=== PATIENT | male | born 1980 | race Caucasian/White ===

== ENCOUNTER 2017-07-13 04:38 | Emergency (ER) | payer OTHER ==
[~2017-07-13] VITALS: Ht 180.3 cm; Wt 113.4 kg
[2017-07-13] MEDS ORDERED: ONDANSETRON HCL INJ 2 MG/ML VIAL IV STA (04:59)
[2017-07-13] MEDS ORDERED: KETOROLAC TROMETHAMINE 30 MG/ML VIAL IV STA (04:59)
[2017-07-13] MEDS ORDERED: NORVASC5 MG PO (05:05)
[2017-07-13] MEDS ORDERED: CRESTOR10 MG PO (05:05)
[2017-07-13] MEDS ORDERED: LOSARTAN POTASS25 MG PO (05:05)
[2017-07-13] MEDS ORDERED: TRIAMTERENE-HCTZ1 EA PO (05:05)
[2017-07-13] MEDS ORDERED: SIMVASTATIN20 MG PO (05:05)
[2017-07-13 05:32] LABS: BILIRUBIN,URINE NEGATIVE (NEGATIVE); CLARITY,URINE CLEAR (CLEAR); COLOR,URINE YELLOW (YELLOW); KETONES,URINE NEGATIVE (NEGATIVE); LEUKOCYTE ESTERASE ,URINE NEGATIVE (NEGATIVE); NITRITE,URINE NEGATIVE (NEGATIVE); PROTEIN,URINE DIPSTICK NEGATIVE (NEGATIVE); URINE UROBILINOGEN 0.2 mg/dL (0.2 - 1)
[2017-07-13 05:33] LABS: BASOPHILS % 0.3 % (0.0-1.0); EOSINOPHILS # (AUTO) 0.1 (0.0-0.4); EOSINOPHILS % 0.8 % (0.0-6.0); HEMATOCRIT 42.7 % (38.2-49.6); HEMOGLOBIN 15.4 g/dL (14.0-18.0); LYMPHOCYTES # (AUTO) 2.3 (1.0-3.2); LYMPHOCYTES % 23.4 % (18.0-39.1); MEAN CORPUSCULAR HGB CONC 36.1 g/dL (31-35); MEAN CORPUSCULAR VOLUME 91.4 fL (81-99); MONOCYTES # (AUTO) 0.8 (0.2-0.8); MONOCYTES % 7.8 % (4.4-11.3); NEUTROPHILS # (AUTO) 6.6 (2.1-6.9); NEUTROPHILS % 67.4 % (38.7-80.0); PLATELET COUNT 162 x10e3/uL (140-360); RED BLOOD COUNT 4.67 x10e6/uL (4.3-5.7); RED CELL DISTRIBUTION WIDTH 12.1 % (11.7-14.4)
[2017-07-13] MEDS ORDERED: DIATRIZOATE MEGL/DIATRIZOA SOD 30 ML BTL PO ONE (05:35)
[2017-07-13 05:46] LABS: ALANINE AMINOTRANSFERASE 45 IU/L (0-55); ALBUMIN 3.8 g/dL (3.5-5.0); ALBUMIN/GLOBULIN RATIO 1.1 (0.8-2.0); ALKALINE PHOSPHATASE 77 IU/L (40-150); AMYLASE 60 U/L (25-125); ANION GAP 11.3 mmol/L (8-16); BLOOD UREA NITROGEN 14 mg/dL (7-26); BUN/CREATININE RATIO 11 (6-25); CALCIUM 8.9 mg/dL (8.4-10.2); CARBON DIOXIDE 24 mmol/L (22-29); CHLORIDE 103 mmol/L (98-107); CREATININE, SERUM 1.22 mg/dL (0.72-1.25); EST GLOMERULAR FILTRATION RATE > 60 ML/MIN (60-); GLUCOSE 139 mg/dL (74-118); LIPASE 48 U/L (8-78); POTASSIUM 3.3 mmol/L (3.5-5.1); SODIUM 135 mmol/L (136-145)
[2017-07-13 05:49] LABS: BACTERIA,URINE RARE /HPF; EPITHELIAL CELLS,URINE RARE /LPF; RBC,URINE 0-5 /HPF (0-5); WBC,URINE (MAN) 0-5 /HPF (0-5)
[2017-07-13 05:50] LABS: MUCUS,URINE MANY (RARE)
[2017-07-13] MEDS ORDERED: IOPAMIDOL 370 MG/ML 200 ML INFUS..BTL INJ ONE (06:31)
[2017-07-13] MEDS ORDERED: SODIUM CHLORIDE 0.9% 50ML 50 ML ONE (06:31)
--- NOTE | 2017-07-13 06:55 | Diagnostic Imaging Report ---
EXAM: CT ABDOMEN AND PELVIS with IV CONTRAST DATE: 07/13/2017 4:59 AM Time stamp on Exam: 0628 hours INDICATION: Left lower quadrant pain COMPARISON: None available TECHNIQUE: The abdomen and pelvis were scanned using a multidetector helical scanner. Coronal and sagittal reformations were obtained. Routine protocol performed. IV Contrast: 100 cc Isovue-370 Oral Contrast: Gastrografin CTDIvol has been reviewed. It is below the limits set by the Radiation Protocol Committee (RPC). FINDINGS: LOWER THORAX: No consolidations LIVER: No masses BILIARY: The gallbladder is unremarkable. No ductal dilation. SPLEEN: No masses PANCREAS: No masses ADRENALS: No nodules KIDNEYS: Symmetric perfusion. No enhancing masses. No hydronephrosis. GI TRACT: Sigmoid colon thickening and pericolonic fat stranding and an area of diverticula. No bowel obstruction. VESSELS: Unremarkable PERITONEUM/RETROPERITONEUM: No free air or fluid LYMPH NODES: No lymphadenopathy REPRODUCTIVE ORGANS: Unremarkable BLADDER: Unremarkable SOFT TISSUES: Unremarkable BONES: No suspicious bone lesions. IMPRESSION: Acute sigmoid colon diverticulitis without abscess formation or free peritoneal air. Signed by: Dr. Nellie Ferrell M.D. on 07/13/2017 6:51 AM
[2017-07-13 07:03] VITALS: BP 109/70
== END 2017-07-13 08:03 | disposition home or self-care (01) ==
LOC: ER 04:38
DX: K57.32 Diverticulitis of large intestine without perforation or abscess without bleeding (principal); I10 Essential (primary) hypertension
CPT/HCPCS: 36415; 74177; 80053; 81001; 82150; 83690; 85025; 87086; 99284; J1885; J2405; Q9967

== ENCOUNTER 2019-05-01 08:45 | Inpatient (IN) | payer OTHER ==
[~2019-05-01] VITALS: Ht 177.8 cm; Wt 113.4 kg
[~2019-05-01 08:45] MED LIST: CRESTOR10 MG PO; LOSARTAN POTASS25 MG PO; NORVASC5 MG PO; SIMVASTATIN20 MG PO; TRIAMTERENE-HCTZ1 EA PO
--- OUTSIDE RECORDS SUMMARY | 2019-05-01 08:48 | XMS REPORT ---
Author Author [facility] Address Unknown Phone Unavailable Care Team Providers [employer] Name Role Phone Katy CANCINO Unavailable Unavailable Payers Payer Name Policy Type Policy Number Effective Date Expiration Date Problems This patient has no known problems. Allergies, Adverse Reactions, Alerts Allergy Name Allergy Type Status Severity Reaction(s) Onset Date Inactive Date Treating Clinician Comments No Known Allergies DA Active U 2012-08-07 00:00:00 Medications This patient has no known medications. Results Test Description Test Time Test Comments Text Results Atomic Results Result Comments RAD, CHEST, 2 VIEWS 2017-12-15 09:18:00 Reason for Exam:->z13.6 FINAL REPORT TECHNIQUE: Frontal and lateral chest radiographs dated 12/15/2017. CLINICAL HISTORY: z13.6 COMPARISON STUDY: Chest radiograph dated 05/29/2016 FINDINGS: Lungs are clear. No pleural effusion or pneumothorax. Cardiomediastinal silhouette is normal in size. No pulmonary edema. No bone or soft tissue abnormalities are seen. IMPRESSION: Clear lungs. Signed: Katy Armendarizepemmett Verified Date/Time: 12/15/2017 09:18:31 Reading Location: [facility] Radiology Reading Room ABDOMEN/PELVIS [address] [place] [address] Patient Name: JOSE JOYNER MR #: [id number] : 1980 Age/Sex: 36/M Req #: [id number] Adm Physician: Ordered by: ROBERT CANCINO MD Report #: [id number] Location: ER Room/Bed: Procedure: [id number] CT/CT ABDOMEN/PELVIS W Exam Date: 07/13/17 Exam Time: 627 REPORT STATUS: Signed EXAM: CT ABDOMEN AND PELVIS with IV CONTRAST DATE: 07/13/2017 4:59 AM Time stamp on Exam: 0628 hours INDICATION: Left lower quadrant pain COMPARISON: None available TECHNIQUE: The abdomen and pelvis were scanned using a multidetector helical scanner. Coronal and sagittal reformations were obtained. Routine protocol performed. IV Contrast: 100 cc Isovue-370 Oral Contrast: Gastrografin CTDIvol has been reviewed. It is below the limits set by the Radiation Protocol Committee (RPC). FINDINGS: LOWER THORAX: No consolidations LIVER: No masses BILIARY: The gallbladder is unremarkable. No ductal dilation. SPLEEN: No masses PANCREAS: No masses ADRENALS: No nodules KIDNEYS: Symmetric perfusion. No enhancing masses. No hydronephrosis. GI TRACT: Sigmoid colon thickening and pericolonic fat stranding and an area of diverticula. No bowel obstruction. VESSELS: Unremarkable PERITONEUM/RETROPERITONEUM: No free air or fluid LYMPH NODES: No lymphadenopathy REPRODUCTIVE ORGANS: Unremarkable BLADDER: Unremarkable SOFT TISSUES: Unremarkable BONES: No suspicious bone lesions. IMPRESSION: Acute sigmoid colon diverticulitis without abscess formation or free peritoneal air. Signed by: Dr. Anupama Ferrell M.D. on 07/13/2017 6:51 AM Dictated By: ANUPAMA FERRELL MD 0 Transcribed By: ALICIA on 07/13/17650 COPY TO: ROBERT CANCINO MD
[2019-05-01] MEDS ORDERED: LOSARTAN POTASS50 MG PO (08:56)
[2019-05-01] MEDS ORDERED: FENOFIBRATE145 M1 PO (08:56)
[2019-05-01] MEDS ORDERED: TRIAMTERENE-HC1 EAC2 PO (08:56)
[2019-05-01] MEDS ORDERED: SODIUM CHLORIDE 0.9% 1000ML 1,000 ML IV STA (09:00)
[2019-05-01] MEDS ORDERED: KETOROLAC TROMETHAMINE 30 MG/ML VIAL IV NR (09:08)
[2019-05-01] MEDS ORDERED: HYDROMORPHONE 1MG/1ML INJ IV NR (09:15)
[2019-05-01 09:16] LABS: BASOPHILS % 0.2 % (0.0-1.0); EOSINOPHILS % 0.2 % (0.0-6.0); HEMATOCRIT 42.6 % (38.2-49.6); LYMPHOCYTES # (AUTO) 1.7 (1.0-3.2); LYMPHOCYTES % 16.8 % (18.0-39.1); MEAN CORPUSCULAR HEMOGLOBIN 32.9 pg (28-32); MEAN CORPUSCULAR HGB CONC 35.2 g/dL (31-35); MEAN CORPUSCULAR VOLUME 93.4 fL (81-99); MONOCYTES # (AUTO) 0.6 (0.2-0.8); MONOCYTES % 5.9 % (4.4-11.3); NEUTROPHILS # (AUTO) 7.5 (2.1-6.9); NEUTROPHILS % 76.5 % (38.7-80.0); PLATELET COUNT 168 x10e3/uL (140-360); RED BLOOD COUNT 4.56 x10e6/uL (4.3-5.7); RED CELL DISTRIBUTION WIDTH 11.9 % (11.7-14.4)
[2019-05-01 09:17] LABS: BILIRUBIN,URINE NEGATIVE (NEGATIVE); CLARITY,URINE CLEAR (CLEAR); COLOR,URINE YELLOW (YELLOW); KETONES,URINE NEGATIVE (NEGATIVE); LEUKOCYTE ESTERASE ,URINE NEGATIVE (NEGATIVE); NITRITE,URINE NEGATIVE (NEGATIVE); PROTEIN,URINE DIPSTICK NEGATIVE (NEGATIVE); URINE UROBILINOGEN 1 mg/dL (0.2 - 1)
[2019-05-01 09:19] LABS: INR 1.06; PROTHROMBIN TIME 14.3 seconds (11.9-14.5)
[2019-05-01 09:20] LABS: PARTIAL THROMBOPLASTIN TIME 26.9 seconds (23.8-35.5)
[2019-05-01 09:26] LABS: ALANINE AMINOTRANSFERASE 49 IU/L (0-55); ALBUMIN 4.1 g/dL (3.5-5.0); ALBUMIN/GLOBULIN RATIO 1.2 (0.8-2.0); ALKALINE PHOSPHATASE 61 IU/L (40-150); ANION GAP 11.4 mmol/L (8-16); BLOOD UREA NITROGEN 12 mg/dL (7-26); BUN/CREATININE RATIO 10 (6-25); CALCIUM 9.7 mg/dL (8.4-10.2); CARBON DIOXIDE 27 mmol/L (22-29); CHLORIDE 101 mmol/L (98-107); CREATINE KINASE 115 IU/L (30-200); CREATININE, SERUM 1.22 mg/dL (0.72-1.25); EST GLOMERULAR FILTRATION RATE > 60 ML/MIN (60-); GLUCOSE 112 mg/dL (74-118); POTASSIUM 3.4 mmol/L (3.5-5.1); SODIUM 136 mmol/L (136-145)
[2019-05-01] MEDS: ONDANSETRON HCL INJ 2MG/ML 2ML 2 MG/ML VIAL IV NR ×2 (09:30→12:59)
[2019-05-01] MEDS ORDERED: PANTOPRAZOLE 40 MG 10ML VIAL IV NR (09:30)
[2019-05-01] MEDS ORDERED: DIATRIZOATE MEGL/DIATRIZOA SOD 30 ML BTL PO ONE (09:38)
[2019-05-01 09:44] LABS: BACTERIA,URINE FEW /HPF; RBC,URINE 0-5 /HPF (0-5)
[2019-05-01 09:45] LABS: EPITHELIAL CELLS,URINE RARE /LPF
[2019-05-01] MEDS ORDERED: SODIUM CHLORIDE 0.9% 50ML 50 ML ONE (11:00)
[2019-05-01] MEDS ORDERED: IOPAMIDOL 370 MG/ML 200 ML INFUS..BTL INJ ONE (11:00)
[2019-05-01] MEDS: PIPER-TAZ 3.375 GM 50 ML IV SCH ×4 (11:39→23:20)
[2019-05-01] MEDS: METRONIDAZOLE 500MG/NS 100ML 100 ML IV SCH ×2 (11:39→17:58)
[2019-05-01] MEDS ORDERED: ONDANSETRON HCL INJ 2MG/ML 2ML 2 MG/ML VIAL IV PRN (11:45)
[2019-05-01] MEDS ORDERED: HYDROMORPHONE 1MG/1ML INJ IV PRN (11:45)
--- NOTE | 2019-05-01 12:15 | Diagnostic Imaging Report ---
EXAM: CT Abdomen and Pelvis WITH contrast INDICATION: ^LLQ ABD PAIN, FEVER, LIKELY DIVERTICULITIS CLINICALLY ^[id number] ^1040 COMPARISON: CT abdomen and pelvis 07/13/2017 TECHNIQUE: Abdomen and pelvis were scanned utilizing a multidetector helical scanner from the lung base to the pubic symphysis after administration of IV contrast. Coronal and sagittal reformations were obtained. Routine protocol was performed. Scan was performed when during portal venous phase. IV CONTRAST: 100 mL of Isovue-370 ORAL CONTRAST: None RADIATION DOSE: Total DLP: 883.9 mGy*cm Estimated effective dose: (DLP x 0.015 x size factor) mSv COMPLICATIONS: None FINDINGS: LINES and TUBES: None. LOWER THORAX: Unremarkable HEPATOBILIARY: Hepatic steatosis. No focal hepatic lesions. No biliary ductal dilation. GALLBLADDER: No radio-opaque stones or sludge. No wall thickening. SPLEEN: No splenomegaly. PANCREAS: No focal masses or ductal dilatation. ADRENALS: No adrenal nodules KIDNEYS/URETERS: Kidneys enhance symmetrically. No hydronephrosis. No cystic or solid mass lesions. No stones. GI TRACT: Mild circumferential wall thickening of the stomach may be overestimated by poor distention but cannot exclude chronic inflammation. Diffuse diverticulosis throughout the sigmoid colon with worsening wall thickening and surrounding fat stranding suggestive of recurrent acute diverticulitis. No free air or free fluid or abscess. Mild wall thickening of few loops of small bowel adjacent to the sigmoid diverticulitis, likely reactive inflammation. The remaining bowel is unremarkable. Appendix is not visualized. PELVIC ORGANS/BLADDER: Unremarkable. LYMPH NODES: No lymphadenopathy. VESSELS: Unremarkable. PERITONEUM / RETROPERITONEUM: No free air or fluid. BONES: Unremarkable. SOFT TISSUES: Unremarkable. IMPRESSION: Recurrent acute noncomplicated diverticulitis of the sigmoid colon. No abscess or pneumoperitoneum. These findings were discussed with Dr. Garcia on 05/01/2019 at 12:00 PM. Signed by: Dr. Cecy Petersen M.D. on 05/01/2019 12:12 PM
--- NOTE | 2019-05-01 12:30 | NUR ---
received report from [facility] in er awaiting for pt to arrive to floor
[2019-05-01 13:25] VITALS: BP 126/79
--- NOTE | 2019-05-01 13:25 | NUR ---
PT ARRIVED TO FLOOR AA0X3 A BEDSIDE PT REPORTS PAIN TO ABD 4/10 TOLERABLE AT THIS TIME IV TO THE RIGHT AC 18 C PATENT AND DRY PT IS EATING CLEAR LIQUIDS AT BEDSIDE WILL CONTINUE TO MONITOR PT CLOSELY SIDE RAILSX2, BED WHEELS LOCKED, CALL LIGHT IS WITHIN EASY REACH, INSTRUCTED TO CALL FOR ASSISTANCE IF NEEDED
[2019-05-01] MEDS: SODIUM CHLORIDE 0.9% 1000ML 1,000 ML IV SCH ×2 (13:39→23:20)
[2019-05-01] MEDS ORDERED: INFLUENZA VIRUS VAC SPLIT INJ 0.5 ML SYR IM SCH (13:39)
[2019-05-01 16:04] VITALS: BP 107/78
--- NOTE | 2019-05-01 18:42 | NUR ---
PT COMPLAINTS OF CHILLS. TEMP TAKEN READS 101.2 SPOKE WITH MARGUERITE NEW ORDERS RECEIVED BLOOD CULTURES, TYLENOL, AND HOME MED RENEWAL ORDERS RECEIVED
[2019-05-01] MEDS ORDERED: HYDRALAZINE HCL 20 MG/ML VIAL IV PRN (18:45)
[2019-05-01] MEDS ORDERED: ACETAMINOPHEN 325 MG TAB PO PRN (18:45)
[2019-05-01 19:55] VITALS: BP 131/83
[2019-05-01 20:00] VITALS: BP 131/83
[2019-05-02] VITALS (8 sets, daily range): BP systolic 99–127; BP diastolic 68–83
[2019-05-02] MEDS: SODIUM CHLORIDE 0.9% 1000ML 1,000 ML IV SCH ×3 (03:36→19:36)
[2019-05-02] MEDS: PIPER-TAZ 3.375 GM 50 ML IV SCH ×3 (05:24→17:09)
[2019-05-02] MEDS ORDERED: MELATONIN 5 MG TABLET PO PRN (06:00)
[2019-05-02] MEDS ORDERED: HYDROCODONE/APAP 5MG-325MG TAB PO PRN (06:00)
[2019-05-02] MEDS: METRONIDAZOLE 500MG/NS 100ML 100 ML IV SCH ×4 (06:04→17:42)
[2019-05-02 06:15] LABS: BASOPHILS % 0.3 % (0.0-1.0); EOSINOPHILS # (AUTO) 0.1 (0.0-0.4); EOSINOPHILS % 0.8 % (0.0-6.0); HEMATOCRIT 35.7 % (38.2-49.6); HEMOGLOBIN 12.5 g/dL (14.0-18.0); LYMPHOCYTES # (AUTO) 1.6 (1.0-3.2); LYMPHOCYTES % 21.5 % (18.0-39.1); MEAN CORPUSCULAR HEMOGLOBIN 32.8 pg (28-32); MEAN CORPUSCULAR VOLUME 93.7 fL (81-99); MONOCYTES # (AUTO) 0.7 (0.2-0.8); MONOCYTES % 8.6 % (4.4-11.3); NEUTROPHILS # (AUTO) 5.2 (2.1-6.9); NEUTROPHILS % 68.4 % (38.7-80.0); PLATELET COUNT 125 x10e3/uL (140-360); RED BLOOD COUNT 3.81 x10e6/uL (4.3-5.7); RED CELL DISTRIBUTION WIDTH 11.8 % (11.7-14.4)
[2019-05-02 06:33] LABS: ALANINE AMINOTRANSFERASE 32 IU/L (0-55); ALBUMIN 3.2 g/dL (3.5-5.0); ALBUMIN/GLOBULIN RATIO 1.1 (0.8-2.0); ALKALINE PHOSPHATASE 49 IU/L (40-150); ANION GAP 11.5 mmol/L (8-16); BLOOD UREA NITROGEN 11 mg/dL (7-26); BUN/CREATININE RATIO 9 (6-25); CALCIUM 8.7 mg/dL (8.4-10.2); CARBON DIOXIDE 25 mmol/L (22-29); CHLORIDE 107 mmol/L (98-107); CREATININE, SERUM 1.28 mg/dL (0.72-1.25); EST GLOMERULAR FILTRATION RATE > 60 ML/MIN (60-); GLUCOSE 95 mg/dL (74-118); POTASSIUM 3.5 mmol/L (3.5-5.1); SODIUM 140 mmol/L (136-145)
--- NOTE | 2019-05-02 07:00 | NUR ---
BEDSIDE ROUNDS COMPLETE NO DISTRESS NOTED,UPDATED ON POC VOCIED UNDERSTANDING, ALLEN PAIN AT THIS TIME CALL LIGHT IN REACH WILL CONTINUE TO MONITOR
[2019-05-02] MEDS ORDERED: ONDANSETRON HCL 4 MG ORAL DISINTEGRATING TAB PO PRN (08:00)
[2019-05-02] MEDS ORDERED: LOSARTAN POTASSIUM 100 MG TAB PO SCH (09:00)
[2019-05-02 09:11] LABS: C DIFFICILE TOXIN A&B AMP PROB NEGATIVE (NEGATIVE); OCCULT BLOOD STOOL NEGATIVE (NEGATIVE)
[2019-05-02] MEDS: FENOFIBRATE 145 MG TAB PO SCH (09:37)
--- NOTE | 2019-05-02 20:03 | NUR ---
Received change of shift report from AM nurse. Walking rounds completed.
[2019-05-02] MEDS ORDERED: LOSARTAN POTASSIUM 25 MG TAB PO SCH (21:00)
--- NOTE | 2019-05-03 02:00 | NUR ---
Patient up ambulating in torres with no difficulty noted.
[2019-05-03] MEDS: SODIUM CHLORIDE 0.9% 1000ML 1,000 ML IV SCH (03:36)
[2019-05-03 04:00] VITALS: BP 112/63
[2019-05-03 05:47] LABS: BASOPHILS % 0.4 % (0.0-1.0); EOSINOPHILS # (AUTO) 0.1 (0.0-0.4); EOSINOPHILS % 1.4 % (0.0-6.0); HEMATOCRIT 34.7 % (38.2-49.6); HEMOGLOBIN 11.9 g/dL (14.0-18.0); LYMPHOCYTES # (AUTO) 1.7 (1.0-3.2); LYMPHOCYTES % 33.4 % (18.0-39.1); MEAN CORPUSCULAR HEMOGLOBIN 32.2 pg (28-32); MEAN CORPUSCULAR HGB CONC 34.3 g/dL (31-35); MONOCYTES # (AUTO) 0.5 (0.2-0.8); MONOCYTES % 10.6 % (4.4-11.3); NEUTROPHILS # (AUTO) 2.7 (2.1-6.9); NEUTROPHILS % 53.8 % (38.7-80.0); PLATELET COUNT 135 x10e3/uL (140-360); RED BLOOD COUNT 3.69 x10e6/uL (4.3-5.7); RED CELL DISTRIBUTION WIDTH 11.6 % (11.7-14.4)
[2019-05-03] MEDS: METRONIDAZOLE 500MG/NS 100ML 100 ML IV SCH ×2 (05:51)
[2019-05-03] MEDS: PIPER-TAZ 3.375 GM 50 ML IV SCH ×2 (05:51)
[2019-05-03 06:03] LABS: ANION GAP 10.6 mmol/L (8-16); BLOOD UREA NITROGEN 8 mg/dL (7-26); BUN/CREATININE RATIO 6 (6-25); CARBON DIOXIDE 25 mmol/L (22-29); CHLORIDE 107 mmol/L (98-107); CHOL/HDL RATIO 4.1 (3.9-4.7); CHOLESTEROL 140 MD/DL (0-199); CREATININE, SERUM 1.24 mg/dL (0.72-1.25); EST GLOMERULAR FILTRATION RATE > 60 ML/MIN (60-); GLUCOSE 92 mg/dL (74-118); HDL CHOLESTEROL 34 MG/DL (40-60); LDL CHOLESTEROL 94 MG/DL (60-130); LIPASE 26 U/L (8-78); POTASSIUM 3.6 mmol/L (3.5-5.1); SODIUM 139 mmol/L (136-145); TRIGLYCERIDES 58 MG/DL (0-149)
[2019-05-03 06:25] LABS: THYROID STIMULATING HORMONE 1.578 uIU/mL (0.350-4.940)
--- NOTE | 2019-05-03 06:38 | NUR ---
Patient resting quitly at this time.
[2019-05-03 06:42] LABS: FERRITIN 549.97 ng/mL (21.81-274.66)
--- NOTE | 2019-05-03 07:14 | NUR ---
pt ambulating in torres at this time, resp even and unlabored at this time no distress noted, and able to make needs known, will cont to monitor.
[2019-05-03 07:39] VITALS: BP 121/83
[2019-05-03 08:00] VITALS: BP 121/83
--- NOTE | 2019-05-03 08:00 | NUR ---
pt amb. in torres at this time. no distress noted.
[2019-05-03] MEDS: FENOFIBRATE 145 MG TAB PO SCH (09:34)
--- NOTE | 2019-05-03 11:01 | NUR ---
pt lying in bed in room resp even , no c/o of abd. pain when asked, call light in reach
[2019-05-03 11:08] VITALS: BP 122/89
[2019-05-03] MEDS ORDERED: FAMOTIDINE20 MG PO (15:56)
[2019-05-03] MEDS ORDERED: FLAGYL500 MG PO (15:56)
[2019-05-03] MEDS ORDERED: LEVAQUIN500 MG PO (15:56)
[2019-05-03] MEDS ORDERED: ACETAMINOPHEN325 M1 PO (15:56)
[2019-05-03 16:13] VITALS: BP 119/86
[2019-05-03] MEDS ORDERED: FAMOTIDINE 20 MG TAB PO SCH (16:30)
--- NOTE | 2019-05-03 18:41 | NUR ---
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
--- NOTE | 2019-05-04 01:56 | Discharge Summary ---
PCP: Dr. Fortino Forte. CONSULTING PHYSICIAN: Luis Miguel MD, with GI. HISTORY OF PRESENT ILLNESS: Mr. De Anda is a 38-year-old male, who was admitted with left lower quadrant abdominal pain that was described as constant, cramping, sharp pain. He denied diarrhea and his last bowel movement prior to admission was two days. Before the pain was worse with food, he had associated chills, but denied checking his temperature and no recent antibiotic use. PAST MEDICAL HISTORY: Hypertension, hyperlipidemia, and diverticulitis in 2018. PAST SURGICAL HISTORY: Bilateral tympanoplasty and left shoulder surgery and vasectomy. FAMILY HISTORY: His father had cancer. SOCIAL HISTORY: Noncontributory. ALLERGIES: NO KNOWN ALLERGIES. ADMITTING DIAGNOSES: 1. Sigmoid colon diverticulitis. 2. Hypertension. 3. Hyperlipidemia. 4. Obesity, BMI 35.9. DISCHARGE DIAGNOSES: 1. Sigmoid colon diverticulitis with left lower quadrant abdominal pain. 2. Controlled hypertension. 3. Hyperlipidemia. 4. Obesity, BMI 35.9. LABORATORY DATA: On admission, WBC 9.85. Today, day of discharge, WBC 5.0. Platelet count 168 on admission and 135 on discharge. Today, hemoglobin 11.9 and hematocrit 34.7, BUN 8, creatinine 1.24, and GFR greater than 60. Hemoglobin A1c was 5.1%, iron 82, TIBC 235%, saturation 35, transferrin 168, ferritin 549.97, vitamin B12 303, TSH 1.578, triglycerides 58, cholesterol 140, LDL 94, and HDL 34. Urinalysis is negative. Stool for occult blood was negative on 05/02. Stool for calprotectin was pending. Blood culture showed no growth after 24 hours. Final urine culture was negative for growth after 36-[address]. Ab[address] and pelvis CT that was done on May 01 showed recurrent acute non complicated diverticulitis of the sigmoid colon. No abscess or pneumoperitoneum. No change in physical examination. Case was discussed with Dr. Luis Miguel. Per his standpoint, the patient to be discharged home and follow up with him in about a week. We will provide prescriptions for oral Flagyl 500 mg p.o. t.i.d. and Levaquin 500 mg p.o. daily, both for 10 days. The patient has been on IV Zosyn and IV Flagyl, which has been effective. The patient to go home on a GI soft diet. Advance diet as tolerated. Activity level as tolerated. Follow up with PCP in 1-2 weeks. Dictated by Reid Daniels, JANIYA MD EDI Deleon/DEVYN /[id number]
== END 2019-05-03 18:20 | disposition home or self-care (01) | DRG 392 ==
LOC: ER 08:45 → ERHOLD 12:41 → MED/SURG 13:16
PROVIDERS: ADMIT Internal Medicine; ATTEND Internal Medicine
DX: K57.32 Diverticulitis of large intestine without perforation or abscess without bleeding (principal); Z82.49 Family history of ischemic heart disease and other diseases of the circulatory system; I10 Essential (primary) hypertension; E78.5 Hyperlipidemia, unspecified; Z80.9 Family history of malignant neoplasm, unspecified; E66.9 Obesity, unspecified; Z68.35 Body mass index [BMI] 35.0-35.9, adult; D64.9 Anemia, unspecified; K82.9 Disease of gallbladder, unspecified
CPT/HCPCS: 36415; 74177; 80048; 80053; 80061; 81001; 82270; 82550; 82553; 82607; 82728; 83036; 83540; 83690; 83993; 84443; 84466; 84484; 85025; 85045; 85610; 85730; 87040; 87045; 87086; 87493; 99284; J1170; J1885; J2405; J2543; J7030; Q9967

== ENCOUNTER → 2021-09-13 | Day surgery (SDC) | payer OTHER ==
[2021-09-10 11:36] LABS: ANION GAP 12.2 mmol/L (8-16); CREATININE, SERUM 1.23 mg/dL (0.72-1.25); POTASSIUM 4.2 mmol/L (3.5-5.1)
[~2021-09-13] MED LIST changes: +ACETAMINOPHEN325 M1 PO; +BUPIVACAINE HCL 0.5% INJ 30 ML VIAL INJ ONE; +DEXAMETHASONE SOD PHOS INJ 4 MG/ML SDV ONE; +FAMOTIDINE20 MG PO; +FENOFIBRATE145 M1 PO; +FENTANYL CITRATE/PF 100MCG/2 ML INJ ONE; +FLAGYL500 MG PO; +LEVAQUIN500 MG PO; +LIDOCAINE 1% W/EPINEPHRINE 20 ML VIAL ONE; +LIDOCAINE HCL 2% LOCAL INJ 5 ML SDV VIAL INJ ONE; +LOSARTAN POTASS50 MG PO; +MEPERIDINE HCL INJ 25 MG/ML VIAL ONE; +MIDAZOLAM HCL 2 MG/2 ML VIAL ONE; +ONDANSETRON HCL INJ 2MG/ML 2ML 2 MG/ML VIAL ONE; +POVIDONE IODINE 0.05% 0.05 % ML PO ONE; +PROPOFOL IV EMULSION 10 MG/ML 20 ML VIAL ONE; +SEVOFLURANE INHAL SOLN 250 ML PEN BTL ONE; +SODIUM CHLORIDE 0.9% 50ML 100 ML ONE; +TRIAMTERENE-HC1 EAC2 PO; +VIT D PO; +ZETIA10 MG PO
[2021-09-13 15:05] VITALS: BP 113/78
== END | disposition home or self-care (01) ==
LOC: OR 08:50
PROVIDERS: ATTEND Orthopaedic Surgery
DX: S83.231A Complex tear of medial meniscus, current injury, right knee, initial encounter (principal); S83.281A Other tear of lateral meniscus, current injury, right knee, initial encounter; M22.41 Chondromalacia patellae, right knee; M67.51 Plica syndrome, right knee; K21.9 Gastro-esophageal reflux disease without esophagitis; I10 Essential (primary) hypertension; E78.5 Hyperlipidemia, unspecified; R05.9 Cough, unspecified; T78.40XA Allergy, unspecified, initial encounter; X58.XXXA Exposure to other specified factors, initial encounter; Z01.810 Encounter for preprocedural cardiovascular examination; Z01.812 Encounter for preprocedural laboratory examination; Z20.822 Contact with and (suspected) exposure to COVID-19; Z79.899 Other long term (current) drug therapy
CPT/HCPCS: 29882; 36415; 80048; 93005; J0690; J1100; J2001; J2175; J2250; J2405; J2704; J3010; U0002